=== PATIENT | male | born 1945 | race Hispanic/Latino ===

== ENCOUNTER 2017-07-27 19:51 | Inpatient (IN) | payer MEDICARE ==
--- NOTE | 2017-07-27 20:46 | ED PDOC ---
HPI: Fever Fever Onset Was: 07/27/17 The Fever Was Measured: Axillary Symptoms Associated With Fever: None Additional Comments: History taken from daughter. Pt is 72y/o male with hx of COPD, recently underwent a TAVR 2 weeks ago presenting with fever of 103F today. Pt's daughter reports that he has had a mild non productive cough for 2 days and appears dyspnic today and has had poor po intake since his procedure. Additionally, she states that he is more lethargic and his eyes dont seem to focusing as well. Pt reports that he is feeling weak and lethargic. Denies chest pain, palpatations, dyspnea, abdominal pain, n/v/d, dysuria, calf pain, or motor or sensory deficits. Daughter later reports that patient has not been taking medication for his COPD in the last month. <Jack Ring - Last Filed: 07/27/17 22:30> Past Medical History Reviewed: Historical Data, Nursing Documentation, Vital Signs - Medical History PMH: COPD - Surgical History Other surgeries: TAVR 2 weeks ago - Family History Family History: States: No Known Family Hx - Living Arrangements Living Arrangements: With Family <Jack Ring - Last Filed: 07/27/17 22:30> <Karla Birch - Last Filed: 07/27/17 22:59> Vital Signs: Last Vital Signs Temp 98.8 F 07/27/17 22:05 Pulse 123 H 07/27/17 22:05 Resp 18 07/27/17 22:05 BP 99/61 L 07/27/17 22:05 Pulse Ox 100 07/27/17 22:32 - Home Medications Home Medications: Ambulatory Orders Medication Instructions Recorded Albuterol 0.083% [Albuterol 0.083% 3 ml INH Q4 PRN 07/27/17 Inhal Sommer (2.5 mg/3 ml) UD] Albuterol HFA [Ventolin HFA 90 1 puff INH Q4 PRN 07/27/17 mcg/actuation (8 g)] Aspirin [Ecotrin] 81 mg PO DAILY 07/27/17 Clopidogrel [Plavix] 75 mg PO DAILY 07/27/17 Fluticasone/Salmeterol [Advair 1 puff INH Q12 07/27/17 250-50 Diskus] - Allergies Allergies/Adverse Reactions: Allergies Allergy/AdvReac Type Severity Reaction Status Date / Time No Known Allergies Allergy Verified 07/27/17 19:56 Physical Exam - Reviewed Nursing Documentation Reviewed: Yes Vital Signs Reviewed: Yes - Physical Exam Appears: Positive for: Well, Non-toxic, No Acute Distress Skin: Positive for: Normal Color, Warm, Jaundice (slight jaundice) Eye Exam: Positive for: Scleral icterus ENT: Positive for: Normal ENT Inspection Neck: Positive for: Normal, Supple Cardiovascular/Chest: Positive for: Regular Rate, Rhythm, Other. Negative for: Chest Non Tender, JVD, Murmur, Tachycardia Respiratory: Positive for: Normal Breath Sounds, Decreased Breath Sounds, Other (Mild dyspnea, mouth breathing, no retractions, able to speak in complete sentences ). Negative for: Accessory Muscle Use, Crackles, Rales, Stridor, Wheezing Pulses-Dorsalis Pedis (L): 2+ Pulses-Femoral (L): 2+ Pulses-Radial (L): 2+ Pulses-Radial (R): 2+ Gastrointestinal/Abdominal: Positive for: Normal Exam, Soft. Negative for: Tenderness Back: Negative for: L CVA Tenderness, R CVA Tenderness Extremity: Positive for: Capillary Refill (normal). Negative for: Calf Tenderness Neurologic/Psych: Positive for: Alert, Oriented <Jack Ring - Last Filed: 07/27/17 22:30> - Laboratory Results Result Diagrams: 07/27/17 21:02 07/27/17 21:02 - ECG O2 Sat by Pulse Oximetry: 100 <Jack Ring - Last Filed: 07/27/17 22:30> - Laboratory Results Result Diagrams: 07/27/17 21:02 07/27/17 21:02 - Critical Care Total Time (In Min): 30 <Karla Birch Y - Last Filed: 07/27/17 22:59> Medical Decision Making <Jack Ring - Last Filed: 07/27/17 22:30> <Karla Birch Y - Last Filed: 07/27/17 22:59> Medical Decision Makin72 y/o male with hx of COPD s/p TAVR 2 weeks ago presenting with fever and cough. ED Course: CBC CMP EKG Cardiac Enzymes Lactic Acid serum ABG ProBNP Influenza BCx, [facility] I spoke with pt's ed teacher Dr. Griffin and made him aware of pt's status. Plan: Admit to ICU for Sepsis likely secondary to pnuemonia. Discussed case with ER Attending, Dr. Birch (Jack Ring) Patient evaluated by resident and myself. Patient presents to the ER for fever and shortness of breath, onset tonight. Reports Tmax of 103 at home, here he is afebrile. Blood pressure is borderline. Of note, patient had TAVR procedure done at [facility] recently. Pt has hx of COPD as well. CXR shows possible pneumonia. Flu negative. Troponin positive. Lactic acid is 3.7 Will treat for clinical pneumonia and sepsis. Patient will be admitted to ICU. Hospitalist made aware of patient. (Karla Birch) Disposition - Patient ED Disposition Is Patient to be Admitted: Yes - Disposition Disposition Time: 22:31 <Jack Ring - Last Filed: 07/27/17 22:30> - Patient ED Disposition Is Patient to be Admitted: Yes Counseled Patient/Family Regarding: Studies Performed - Disposition Disposition: Transfer of Care (admitted to ICU) - Pt Status Changed To: Hospital Disposition Of: Inpatient - Admit Certification Admit to Inpatient:: After my assessment, the patient will require hospitalization for at least two midnights. This is because of the severity of symptoms shown, intensity of services needed, and/or the medical risk in this patient being treated as an outpatient. <Karla Birch - Last Filed: 07/27/17 22:59> - Clinical Impression Clinical Impression: Sepsis - Disposition Condition: SERIOUS - PA / FLATWORK FINISHER / Resident Statement MD/DO has reviewed & agrees with the documentation as recorded. <Karla Birch - Last Filed: 07/27/17 22:59>
[2017-07-27 20:52] LABS: ABG ALLEN TEST YES; ARTERIAL BLOOD GAS HCO3 25.5 mmol/L (21-28); ARTERIAL BLOOD GAS HEMOGLOBIN 14.3 g/dL (11.7-17.4); ARTERIAL BLOOD GAS O2 CAPACITY 18.8 mL/dL (16-24); ARTERIAL BLOOD GAS O2 CONTENT 17.8 ML/dL (15-23); ARTERIAL BLOOD GAS O2 SAT 94.5 % (95-98); ARTERIAL BLOOD GAS PCO2 21 mm/Hg (35-45); ARTERIAL BLOOD GAS PO2 52 mm/Hg (80-100); ARTERIAL BLOOD GAS TCO2 21.2 mmol/L (22-28)
[2017-07-27] MEDS: Sodium Chloride 0.9% 1,000 ML IV SCH (21:05)
[2017-07-27] MEDS ORDERED: Albuterol-Ipratrop 3 mg / 0.5 (3 ml) UD INH STA (21:13)
[2017-07-27 21:19] LABS: BASO % 0.1 % (0.0-2.0); EOS % 0.1 % (0.0-4.0); HEMOGLOBIN 14.2 g/dL (12.0-18.0); LYMPH # 0.1 K/uL (1.0-4.3); LYMPH % 1.4 % (20.0-40.0); MEAN CELL VOLUME 92.2 fl (80.0-94.0); MEAN CORPUSCULAR HEMOGLOBIN 30.2 pg (27.0-31.0); MEAN CORPUSCULAR HGB CONC 32.7 g/dL (33.0-37.0); MEAN PLATELET VOLUME 8.7 fl (7.2-11.7); MONO # 0.3 K/uL (0.0-0.8); MONO % 2.7 % (0.0-10.0); NEUT # 9.6 K/uL (1.8-7.0); NEUT % 95.7 % (50.0-75.0); NRBC % 0.1 % (0.0-0.0); PLATELET COUNT 67 K/uL (130-400); RBC 4.72 Mil/uL (4.40-5.90); RED CELL DISTRIBUTION WIDTH 19.8 % (11.5-14.5)
[2017-07-27 21:28] LABS: ALBUMIN 2.7 g/dL (3.5-5.0); ALT/SGPT 125 U/L (21-72); AST/SGOT 222 U/L (17-59); BLOOD UREA NITROGEN 24 mg/dl (9-20); CALCIUM 8.1 mg/dL (8.4-10.2); GFR AFRICAN-AMERICAN > 60; GFR NON-AFRICAN AMERICAN > 60
[2017-07-27] MEDS ORDERED: Albuterol-Ipratrop 3 mg / 0.5 (3 ml) UD ONE (21:28)
[2017-07-27 21:30] LABS: ALB/GLOB RATIO 0.7 (1.0-2.1)
[2017-07-27] MEDS ORDERED: Piperacillin/Tazobact 4.5 GM in Sodium Chloride 0.9% 100 ML IVPB ONE (21:30)
[2017-07-27] MEDS ORDERED: Albuterol-Ipratrop 3 mg / 0.5 (3 ml) UD INH PRN (21:59)
[2017-07-27] MEDS ORDERED: Piperacillin/Tazobact 3.375 GM in Sodium Chloride 0.9% 100 ML IVPB SCH (22:00)
[2017-07-27] MEDS ORDERED: Vancomycin 1 g Inj ONE (22:01)
--- NOTE | 2017-07-27 22:07 | CP.PCM.HP ---
History of Present Illness - History of Present Illness History of Present Illness: CC: Fever, cough HPI: 72 y/o male with MHx significant for COPD, valvular heart disease with recent TAVR (07/17), and undiagnosed liver disease who comes in with SOB, cough , and fever starting yesterday. Patient also had a fever of 103+. Cough is not productive of significant sputum. Patient also c/o generalized malaise and anorexia. Patient denies myalgias, cp/n/v/d. Of note patient was in the hospital at another facility about mid-June with similar symptoms. Patient had TAVR procedure at [facility] in [place] on 07/17 without complications. Patient did have flu shot this year. ROS: 14 pt. ROS negative other than HPI MHx: COPD, valvular heart disease, ?unclear liver disease SHx: TAVR recently, surgery of RLE with hardware distant past Allergies: NKDA Medications: As per med rec Family Hx: reviewed, no relevant findings Social Hx: Lives with family, smoked 1/2 ppd x many years until 4 months ago, no significant EtOH Surrogate: , Lina, info on chart Present on Admission - Present on Admission Any Indicators Present on Admission: No Past Patient History - Past Social History Smoking Status: Former Smoker - CARDIAC Hx Hypertension: Yes - PULMONARY Hx Chronic Obstructive Pulmonary Disease (COPD): Yes - PSYCHIATRIC Hx Substance Use: No - SURGICAL HISTORY Hx Surgeries: Yes Hx Orthopedic Surgery: Yes (Right ankle) Other/Comment: TAVR 07/13 - ANESTHESIA Hx Anesthesia: Yes Hx Anesthesia Reactions: No Meds Allergies/Adverse Reactions: Allergies Allergy/AdvReac Type Severity Reaction Status Date / Time No Known Allergies Allergy Verified 07/27/17 19:56 Physical Exam - Constitutional Appears: No Acute Distress, Chronically Ill - Head Exam Head Exam: ATRAUMATIC, NORMOCEPHALIC - Eye Exam Eye Exam: EOMI, PERRL Additional comments: scleral icterus - ENT Exam ENT Exam: Mucous Membranes Moist - Neck Exam Neck exam: Positive for: Full Rom - Respiratory Exam Respiratory Exam: Decreased Breath Sounds, Rhonchi - Cardiovascular Exam Cardiovascular Exam: REGULAR RHYTHM, +S1, +S2 - GI/Abdominal Exam GI & Abdominal Exam: Normal Bowel Sounds, Soft - Extremities Exam Extremities exam: Positive for: full ROM, normal inspection - Neurological Exam Neurological exam: Alert, CN II-XII Intact, Oriented x3 - Psychiatric Exam Psychiatric exam: Normal Affect, Normal Mood - Skin Skin Exam: Dry, Warm Results - Vital Signs Recent Vital Signs: Last Vital Signs Temp 98.9 F 07/27/17 19:52 Pulse 117 H 07/27/17 19:52 Resp 16 07/27/17 19:52 BP 96/75 L 07/27/17 19:52 Pulse Ox 100 07/27/17 21:29 - Labs Result Diagrams: 07/27/17 21:02 07/27/17 21:02 Labs: Laboratory Results - last 24 hr 07/27/17 07/27/17 07/27/17 20:38 20:47 21:02 WBC 10.0 RBC 4.72 Hgb 14.2 Hct 43.5 MCV 92.2 MCH 30.2 MCHC 32.7 L RDW 19.8 H Plt Count 67 L MPV 8.7 Neut % (Auto) 95.7 H Lymph % (Auto) 1.4 L Howard % (Auto) 2.7 Eos % (Auto) 0.1 Baso % (Auto) 0.1 Neut # 9.6 H Lymph # 0.1 L Howard # 0.3 Eos # 0.0 Baso # 0.0 pCO2 21 L pO2 52 L HCO3 25.5 ABG pH 7.60 H ABG Total CO2 21.2 L ABG O2 Saturation 94.5 L ABG O2 Content 17.8 ABG Base Excess 1.1 ABG Hemoglobin 14.3 ABG Carboxyhemoglobin 3.9 H POC ABG HHb (Measured) 5.2 H ABG Methemoglobin 2.3 ABG O2 Capacity 18.8 Rodney Test Yes A-a O2 Difference 71.0 Hgb O2 Saturation 88.6 L FiO2 21.0 Sodium Potassium Chloride Carbon Dioxide Anion Gap BUN Creatinine Est GFR ( Amer) Est GFR (Non-Af Amer) POC Glucose (mg/dL) 106 Random Glucose Lactic Acid Calcium Total Bilirubin AST ALT Alkaline Phosphatase Total Protein Albumin Globulin Albumin/Globulin Ratio Influenza Typ A,B (EIA) 07/27/17 07/27/17 07/27/17 21:02 21:02 21:12 WBC RBC Hgb Hct MCV MCH MCHC RDW Plt Count MPV Neut % (Auto) Lymph % (Auto) Howard % (Auto) Eos % (Auto) Baso % (Auto) Neut # Lymph # Howard # Eos # Baso # pCO2 pO2 HCO3 ABG pH ABG Total CO2 ABG O2 Saturation ABG O2 Content ABG Base Excess ABG Hemoglobin ABG Carboxyhemoglobin POC ABG HHb (Measured) ABG Methemoglobin ABG O2 Capacity Rodney Test A-a O2 Difference Hgb O2 Saturation FiO2 Sodium 128 L Potassium 4.5 Chloride 97 L Carbon Dioxide 22 Anion Gap 14 BUN 24 H Creatinine 0.9 Est GFR ( Amer) > 60 Est GFR (Non-Af Amer) > 60 POC Glucose (mg/dL) Random Glucose 115 H Lactic Acid 3.7 H Calcium 8.1 L Total Bilirubin 4.1 H AST 222 H ALT 125 H Alkaline Phosphatase 69 Total Protein 6.5 Albumin 2.7 L Globulin 3.8 Albumin/Globulin Ratio 0.7 L Influenza Typ A,B (EIA) Negative for flu a/b - EKG Data EKG comments: Pending - Imaging and Cardiology Chest x-ray Status: Image reviewed by me (possible R sided infiltrate, enlarged appearing heart) US - abdomen Status: Pending Assessment & Plan (1) HCAP (healthcare-associated pneumonia) Assessment and Plan: 72 y/o male presenting with possible HCAP with COPD exac and sepsis, also with hypo-Na, and elevated LFTs/jaundice. 1) HCAP/COPD/Sepsis -Admit ICU -Continue Vanc/Zosyn IV -Continue duonebs -Cont Steroid inh for now -f/u labs -repeat Lactic acid in AM 2) Hypo-Na -- multiple possible etiologies: vol overload from cardiac and/or liver disease, pulmonary cause, or intravascular vol dep -Urine lytes, osms, and serum osms ordered -Received IVF in ER, reassess vol status before giving any more fluid 3) Elevated LFTs/Jaundice/Thrombocytopenia -- unknown cause; per family, distant history of 'infection' -f/u U/S abd -Will start on PPI given patient is on dual anti-platelent agents and with low plt -Will need further liver workup if not done, but this can be done with patient' s primary physician 4) DVT PPx -- SCDs only given low plt count and on 2 anti-plt agents 5) GI PPx -- Protonix as above Status: Acute (2) COPD exacerbation Status: Acute (3) Abnormal LFTs Status: Acute (4) Thrombocytopenia Status: Acute (5) Jaundice Status: Acute (6) Hyponatremia Status: Acute (7) DVT prophylaxis Status: Acute (8) Sepsis Status: Acute
[2017-07-27 22:32] LABS: TROPONIN I 0.553 ng/mL (0.00-0.120)
[2017-07-27 22:36] LABS: ANISOCYTOSIS SLIGHT; BURR CELLS SLIGHT; HYPOCHROMIC SLIGHT; LYMPHOCYTE 1 % (20-50); MONOCYTE 2 % (0-10); NEUTROPHIL 97 % (42-75); PLATELET ESTIMATE NORMAL (NORMAL); TEARDROP CELLS SLIGHT; TOTAL CELLS COUNTED 100
[2017-07-28 05:42] LABS: BASO % 0.2 % (0.0-2.0); EOS % 0.1 % (0.0-4.0); HEMOGLOBIN 14.3 g/dL (12.0-18.0); LYMPH # 0.4 K/uL (1.0-4.3); LYMPH % 2.8 % (20.0-40.0); MEAN CELL VOLUME 92.9 fl (80.0-94.0); MEAN CORPUSCULAR HEMOGLOBIN 30.1 pg (27.0-31.0); MEAN CORPUSCULAR HGB CONC 32.4 g/dL (33.0-37.0); MEAN PLATELET VOLUME 9.4 fl (7.2-11.7); MONO % 6.1 % (0.0-10.0); NEUT # 14.3 K/uL (1.8-7.0); NEUT % 90.8 % (50.0-75.0); PLATELET COUNT 39 K/uL (130-400); RBC 4.74 Mil/uL (4.40-5.90); RED CELL DISTRIBUTION WIDTH 20.4 % (11.5-14.5); WHITE BLOOD COUNT 15.8 K/uL (4.8-10.8)
[2017-07-28 05:56] LABS: BLOOD UREA NITROGEN 28 mg/dl (9-20); GFR AFRICAN-AMERICAN > 60; GFR NON-AFRICAN AMERICAN > 60
[2017-07-28] MEDS: Sodium Chloride 0.9% 1,000 ML IV SCH (06:30)
[2017-07-28] MEDS ORDERED: Digoxin 500 mcg/2ml (0.5 mg/2ml) Inj IVP ONE (07:50)
[2017-07-28 08:27] VITALS: PULSE 121
[2017-07-28] MEDS: Piperacillin/Tazobact 3.375 GM in Sodium Chloride 0.9% 100 ML IVPB SCH ×2 (08:34→13:49)
[2017-07-28 08:51] LABS: INR 2.3 (0.9-1.2); PARTIAL THROMBOPLASTIN TIME 43.2 Seconds (25.6-37.1); PROTHROMBIN TIME 26.1 Seconds (9.8-13.1)
[2017-07-28] MEDS ORDERED: Fluticasone-Salmeterol 250-50mcg Diskus INH SCH (09:00)
[2017-07-28] MEDS ORDERED: Enoxaparin 40 mg Syringe SC SCH (09:00)
[2017-07-28] MEDS ORDERED: Pantoprazole 40 mg EC Tab PO SCH (09:00)
[2017-07-28 09:15] LABS: OSMOLALITY,URINE 536 mosm/kg (300-1000)
[2017-07-28 09:23] LABS: BANDS 5 % (0-2); LYMPHOCYTE 2 % (20-50); METAMYELOCYTE 1 % (0-0); MONOCYTE 3 % (0-10); NEUTROPHIL 88 % (42-75); PLATELET ESTIMATE DECREASED (NORMAL); REACTIVE LYMPHOCYTES 1 % (0-0); TOTAL CELLS COUNTED 100
[2017-07-28 09:24] LABS: ANISOCYTOSIS MARKED; OVALOCYTES MODERATE; POIKILOCYTOSIS MODERATE; SCHISTOCYTES SLIGHT
[2017-07-28 09:25] LABS: BURR CELLS SLIGHT; GIANT PLATELETS PRESENT; LARGE PLATELETS PRESENT; TEARDROP CELLS SLIGHT; TOXIC GRANULATION PRESENT
--- NOTE | 2017-07-28 10:11 | CARD ---
APPROVED REPORT EKG Measurement Heart [id number] <Conclusion> Sinus tachycardia with 1st degree AV block with premature supraventricular complexes Septal infarct, age undetermined Abnormal ECG
--- NOTE | 2017-07-28 10:20 | RAD ---
HISTORY: cough COMPARISON: None available. TECHNIQUE: Chest, one view. FINDINGS: Examination limited by habitus. LUNGS: Moderate interstitial markings may reflect infection or edema. Please note that chest x-ray has limited sensitivity for the detection of pulmonary masses. PLEURA: No significant pleural effusion identified. No definite pneumothorax . CARDIOVASCULAR: Cardiomegaly. OSSEOUS STRUCTURES: Degenerative changes. Osseous demineralization. VISUALIZED UPPER ABDOMEN: Unremarkable. OTHER FINDINGS: None. IMPRESSION: Moderate interstitial markings may reflect infection or edema. Cardiomegaly.
--- NOTE | 2017-07-28 10:31 | CARD ---
APPROVED REPORT EKG Measurement Heart [id number] <Conclusion> Atrial fibrillation with rapid ventricular response Septal infarct, age undetermined Abnormal ECG
--- NOTE | 2017-07-28 10:59 | CP.PCM.PN ---
Subjective - Date & Time of Evaluation Date of Evaluation: 07/28/17 Time of Evaluation: 10:00 - Subjective Subjective: Pt seen and examined at bedside, discussed test results , differential Dx , treatment plan , also spoke with pt's daughter over the phone and discussed that pt's condition is critical Family want pt to be transferred to [facility] where his recent TAVR was done Pt looks sick, toxic, febrile , tachycardic, BP low normal high 90's , low 100s he is awake , verbal, answers questions appropiately denies CP + cough, mild SOB denies abd pain no N/V denies headache, no dizziness no focal neuro deficit denies intake of any med except ASA and Plavix at home no ETOH, no drugs former heavy smoker Objective - Vital Signs/Intake and Output Vital Signs (last 24 hours): Temp Pulse Resp BP Pulse Ox 97.7 F 107 H 23 108/90 98 07/28/17 08:00 07/28/17 10:00 07/28/17 10:00 07/28/17 10:00 07/28/17 10:00 Intake and Output: 07/28/17 07/28/17 06:59 18:59 Intake Total 800 Output Total 600 250 Balance 200 -250 - Medications Medications: Current Medications Albuterol/Ipratropium (Duoneb 3 Mg/0.5 Mg (3 Ml) Ud) 3 ml INH RQ6 PRN PRN Reason: Shortness of Breath Aspirin (Ecotrin) 81 mg PO DAILY [facility] Last Admin: 07/28/17 08:29 Dose: 81 mg Clopidogrel Bisulfate (Plavix) 75 mg PO DAILY [facility] Last Admin: 07/28/17 08:29 Dose: 75 mg Sodium Chloride (Sodium Chloride 0.9%) 1,000 mls @ 100 mls/hr IV .Q10H [facility] Stop: 07/28/17 20:23 Last Admin: 07/28/17 06:30 Dose: 100 mls/hr Vancomycin HCl 1 gm/ Sodium (Chloride) 250 mls @ 166.667 mls/hr IVPB Q12 NATALIE PRN Reason: Protocol Piperacillin Sod/Tazobactam (Sod 3.375 gm/ Sodium Chloride) 100 mls @ 100 mls/ hr IVPB 0200,0800,1400,2000 NATALIE PRN Reason: Protocol Last Admin: 07/28/17 08:34 Dose: 100 mls/hr Pantoprazole Sodium (Protonix Ec Tab) 40 mg PO DAILY [facility] Last Admin: 07/28/17 08:29 Dose: 40 mg Fluticasone/Salmeterol (Advair Diskus 250/50) 1 puff INH Q12 [facility] Last Admin: 07/28/17 08:30 Dose: 1 inhaler - Labs Labs: 07/28/17 04:30 07/28/17 04:30 PT 26.1 Seconds (9.8-13.1) H 07/28/17 08:14 INR 2.3 (0.9-1.2) H 07/28/17 08:14 APTT 43.2 Seconds (25.6-37.1) H 07/28/17 08:14 - Constitutional Appears: Toxic, No Acute Distress, Older Than Stated Age, Chronically Ill - Head Exam Head Exam: NORMAL INSPECTION, NORMOCEPHALIC - Eye Exam Eye Exam: EOMI, Normal appearance, PERRL Pupil Exam: NORMAL ACCOMODATION - ENT Exam ENT Exam: Mucous Membranes Dry, Normal External Ear Exam - Neck Exam Neck Exam: Full ROM. absent: Meningismus - Respiratory Exam Respiratory Exam: Rales, Rhonchi, NORMAL BREATHING PATTERN. absent: Wheezes, Respiratory Distress - Cardiovascular Exam Cardiovascular Exam: Tachycardia, REGULAR RHYTHM, +S1, +S2 - GI/Abdominal Exam GI & Abdominal Exam: Soft, Normal Bowel Sounds. absent: Tenderness - Extremities Exam Extremities Exam: Full ROM, Normal Capillary Refill. absent: Calf Tenderness, Pedal Edema - Back Exam Back Exam: Full ROM. absent: CVA tenderness (L), CVA tenderness (R) - Neurological Exam Neurological Exam: Alert, Awake, CN II-XII Intact, Oriented x3 Neuro motor strength exam: Left Upper Extremity: 4, Right Upper Extremity: 4, Left Lower Extremity: 4, Right Lower Extremity: 4 - Psychiatric Exam Psychiatric exam: Flat Affect, Normal Mood - Skin Skin Exam: Dry, Normal Color, Petechiae, Warm Assessment and Plan - Assessment and Plan (Free Text) Assessment: 72 y/o male with hx of recent TAVR ( 10 days ago) and hx of COPD, presented to the ED bec of fever to 103 , cough, generalized weakness. Noted to be hypotensive, septic, with abn LFTS , coagulopathy and Thrombocytopenia and elevated Lactate. Septic Shock prob sec to HCAP (healthcare-associated pneumonia) r/o Endocarditis -Admitted to ICU - Central line placed and pt started on pressors - Levophed and Dopamine - IVF hydration - ID consult - Dr Lynn -Continue Vanc/Zosyn IV -Continue duonebs -Cont Steroid inh for now - Blood cultures, Urine c/s, sputum c/s Recent TAVR done at [facility] Jul 17 Troponin Elevation prob sec to Sepsis Cardio co nsulted cont ASA, Plavix Hyponatremia-- multiple possible etiologies: vol overload from cardiac and/or liver disease, pulmonary cause, or intravascular vol dep -Urine lytes, osms, and serum osms ordered -Received IVF in ER, reassess vol status Elevated LFTs/Jaundice/Thrombocytopenia / Coagulopathy ? etiology ? related to Sepsis - check ddimer, Fibrinogen, HIT -U/S abd: gallstone, no signs of cholecystitis, hepatic cyst -PPI given patient is on dual anti-platelent agents and with low plt - platelet down to 37, INR 2.3 - GI consult -Hematology consult COPD exacerbation Status: Acute received IV Solumedrol, Duoneb treatments DVT proph - hold any anticoag sec to low platelet and coagulopathy Patient and his who is his surrogate decision maker want pt to be transferred back to [facility] - Dr Cook spoke with pt's Respiratory Care Assistant who accepted pt for transfer - awaiting ICU bed.
--- NOTE | 2017-07-28 11:22 | CP.CCUPN ---
CCU Subjective - Physician Review Subjective (Free Text): Patient seen and examined at bedside. Patient with long history of CAD and valvular heart disease. Patient had recent TAVR at [facility]. Patient admitted to ICU. not on pressors, getting IVF. 07/28/17 11:20 CCU Objective - Vital Signs / Intake & Output Vital Signs (Last 4 hours): Vital Signs Temp Pulse Resp BP Pulse Ox 07/28/17 10:00 107 H 23 108/90 98 07/28/17 08:00 97.7 F 132 H 18 92/52 L 95 Intake and Output (Last 8hrs): Intake & Output 07/27/17 07/28/17 07/28/17 22:59 06:59 14:59 Intake Total 800 Output Total 600 250 Balance 200 -250 Weight 150 lb 150 lb Intake: IV 600 Intake, Piggyback 100 Oral 100 Output: Urine 600 250 Urine, Voided 600 250 Other: # Voids Urine, Voided 3 # Bowel Movements 1 - Physical Exam Physical Exam Limitations: Negative for: Altered Mental Status Head: Positive for: Atraumatic, Normocephalic Pupils: Positive for: PERRL Mouth: Positive for: Other (dry blood on anterior tongue) Nose (Internal): Positive for: No Active Bleeding Respiratory/Chest: Positive for: Good Air Exchange, Rales. Negative for: Respiratory Distress, Wheezes Cardiovascular: Positive for: Irregular Rhythm, Tachycardic Abdomen: Positive for: Normal Bowel Sounds. Negative for: Peritoneal Signs Upper Extremity: Positive for: Other (left upper arm erythema) Lower Extremity: Positive for: Normal Inspection - Medications Active Medications: Active Medications Generic Name Dose Route Start Last Admin Trade Name Freq PRN Reason Stop Dose Admin Albuterol/Ipratropium 3 ml 07/27/17 21:59 Duoneb 3 Mg/0.5 Mg (3 Ml) Ud INH RQ6 PRN Shortness of Breath Aspirin 81 mg 07/28/17 09:00 07/28/17 08:29 Ecotrin PO 81 mg DAILY NATALIE Administration Clopidogrel Bisulfate 75 mg 07/28/17 09:00 07/28/17 08:29 Plavix PO 75 mg DAILY NATALIE Administration Sodium Chloride 1,000 mls @ 100 mls/hr 07/27/17 20:30 07/28/17 06:30 Sodium Chloride 0.9% IV 07/28/17 20:23 100 mls/hr .Q10H NATALIE Administration Vancomycin HCl 1 gm/ Sodium 250 mls @ 166.667 mls/hr 07/28/17 09:00 Chloride IVPB Q12 NATALIE Protocol Piperacillin Sod/Tazobactam 100 mls @ 100 mls/hr 07/28/17 08:00 07/28/17 08: 34 Sod 3.375 gm/ Sodium Chloride IVPB 100 mls/hr 0200,0800,1400,2000 NATALIE Administration Protocol Pantoprazole Sodium 40 mg 07/28/17 09:00 07/28/17 08:29 Protonix Ec Tab PO 40 mg DAILY NATALIE Administration Fluticasone/Salmeterol 1 puff 07/28/17 09:00 07/28/17 08:30 Advair Diskus 250/50 INH 1 inhaler Q12 NATALIE Administration - Patient Studies Lab Studies: Lab Studies 07/28/17 07/28/17 07/28/17 Range/Units 08:14 08:14 05:00 WBC (4.8-10.8) K/uL RBC (4.40-5.90) Mil/uL Hgb (12.0-18.0) g/dL Hct (35.0-51.0) % MCV (80.0-94.0) fl MCH (27.0-31.0) pg MCHC (33.0-37.0) g/dL RDW (11.5-14.5) % Plt Count (130-400) K/uL MPV (7.2-11.7) fl Neut % (Auto) (50.0-75.0) % Lymph % (Auto) (20.0-40.0) % [place] % (Auto) (0.0-10.0) % Eos % (Auto) (0.0-4.0) % Baso % (Auto) (0.0-2.0) % Neut # (1.8-7.0) K/uL Lymph # (1.0-4.3) K/uL [place] # (0.0-0.8) K/uL Eos # (0.0-0.7) K/uL Baso # (0.0-0.2) K/uL Neutrophils % (Manual) (42-75) % Band Neutrophils % (0-2) % Lymphocytes % (Manual) (20-50) % Reactive Lymphs % (0-0) % Monocytes % (Manual) (0-10) % Metamyelocytes % (0-0) % Toxic Granulation Platelet Estimate (NORMAL) Large Platelets Giant Platelets Hypochromasia (manual) Poikilocytosis (manual Anisocytosis (manual) Tear Drop Cells Ovalocytes Keaton Cells Schistocytes PT 26.1 H (9.8-13.1) Seconds INR 2.3 H (0.9-1.2) APTT 43.2 H (25.6-37.1) Seconds pCO2 (35-45) mm/Hg pO2 (80-100) mm/Hg HCO3 (21-28) mmol/L ABG pH (7.35-7.45) ABG Total CO2 (22-28) mmol/L ABG O2 Saturation (95-98) % ABG O2 Content (15-23) ML/dL ABG Base Excess (-2.0-3.0) mmol/L ABG Hemoglobin (11.7-17.4) g/dL ABG Carboxyhemoglobin (0.5-1.5) % POC ABG HHb (Measured) (0.0-5.0) % ABG Methemoglobin (0.0-3.0) % ABG O2 Capacity (16-24) mL/dL Rodney Test A-a O2 Difference mm/Hg Hgb O2 Saturation (95.0-98.0) % FiO2 % Sodium (132-148) mmol/l Potassium (3.6-5.0) MMOL/L Chloride (98-107) mmol/L Carbon Dioxide (22-30) mmol/L Anion Gap (10-20) BUN (9-20) mg/dl Creatinine (0.8-1.5) mg/dl Est GFR ( Amer) Est GFR (Non-Af Amer) POC Glucose (mg/dL) (65-110) mg/dL Random Glucose (75-110) mg/dL Lactic Acid 3.4 H 4.6 H* (0.7-2.1) MMOL/L Calcium (8.4-10.2) mg/dL Total Bilirubin (0.2-1.3) mg/dl AST (17-59) U/L ALT (21-72) U/L Alkaline Phosphatase (38-126) U/L Troponin I (0.00-0.120) ng/mL NT-Pro-B Natriuret Pep (0-900) pg/ml Total Protein (6.3-8.2) G/DL Albumin (3.5-5.0) g/dL Globulin (2.2-3.9) gm/dL Albumin/Globulin Ratio (1.0-2.1) Urine Osmolality (300-1000) mosm/kg Ur Random Sodium meq/L Ur Random Potassium mmol/L Influenza Typ A,B (EIA) (NEGATIVE) 07/28/17 07/28/17 07/27/17 Range/Units 04:30 04:30 21:55 WBC 15.8 H D (4.8-10.8) K/uL RBC 4.74 (4.40-5.90) Mil/uL Hgb 14.3 (12.0-18.0) g/dL Hct 44.0 (35.0-51.0) % MCV 92.9 (80.0-94.0) fl MCH 30.1 (27.0-31.0) pg MCHC 32.4 L (33.0-37.0) g/dL RDW 20.4 H (11.5-14.5) % Plt Count 39 L D (130-400) K/uL MPV 9.4 (7.2-11.7) fl Neut % (Auto) 90.8 H (50.0-75.0) % Lymph % (Auto) 2.8 L (20.0-40.0) % [place] % (Auto) 6.1 (0.0-10.0) % Eos % (Auto) 0.1 (0.0-4.0) % Baso % (Auto) 0.2 (0.0-2.0) % Neut # 14.3 H (1.8-7.0) K/uL Lymph # 0.4 L (1.0-4.3) K/uL [place] # 1.0 H (0.0-0.8) K/uL Eos # 0.0 (0.0-0.7) K/uL Baso # 0.0 (0.0-0.2) K/uL Neutrophils % (Manual) 88 H (42-75) % Band Neutrophils % 5 H (0-2) % Lymphocytes % (Manual) 2 L (20-50) % Reactive Lymphs % 1 H (0-0) % Monocytes % (Manual) 3 (0-10) % Metamyelocytes % 1 H (0-0) % Toxic Granulation Present Platelet Estimate Decreased L (NORMAL) Large Platelets Present Giant Platelets Present Hypochromasia (manual) Poikilocytosis (manual Moderate Anisocytosis (manual) Marked Tear Drop Cells Slight Ovalocytes Moderate Shanta Cells Slight Schistocytes Slight PT (9.8-13.1) Seconds INR (0.9-1.2) APTT (25.6-37.1) Seconds pCO2 (35-45) mm/Hg pO2 (80-100) mm/Hg HCO3 (21-28) mmol/L ABG pH (7.35-7.45) ABG Total CO2 (22-28) mmol/L ABG O2 Saturation (95-98) % ABG O2 Content (15-23) ML/dL ABG Base Excess (-2.0-3.0) mmol/L ABG Hemoglobin (11.7-17.4) g/dL ABG Carboxyhemoglobin (0.5-1.5) % POC ABG HHb (Measured) (0.0-5.0) % ABG Methemoglobin (0.0-3.0) % ABG O2 Capacity (16-24) mL/dL Rodney Test A-a O2 Difference mm/Hg Hgb O2 Saturation (95.0-98.0) % FiO2 % Sodium 132 (132-148) mmol/l Potassium 4.1 (3.6-5.0) MMOL/L Chloride 98 (98-107) mmol/L Carbon Dioxide 21 L (22-30) mmol/L Anion Gap 17 (10-20) BUN 28 H (9-20) mg/dl Creatinine 0.8 (0.8-1.5) mg/dl Est GFR ( Amer) > 60 Est GFR (Non-Af Amer) > 60 POC Glucose (mg/dL) (65-110) mg/dL Random Glucose 125 H (75-110) mg/dL Lactic Acid (0.7-2.1) MMOL/L Calcium 8.0 L (8.4-10.2) mg/dL Total Bilirubin (0.2-1.3) mg/dl AST (17-59) U/L ALT (21-72) U/L Alkaline Phosphatase (38-126) U/L Troponin I 0.5530 H* (0.00-0.120) ng/mL NT-Pro-B Natriuret Pep 77285 H (0-900) pg/ml Total Protein (6.3-8.2) G/DL Albumin (3.5-5.0) g/dL Globulin (2.2-3.9) gm/dL Albumin/Globulin Ratio (1.0-2.1) Urine Osmolality (300-1000) mosm/kg Ur Random Sodium meq/L Ur Random Potassium mmol/L Influenza Typ A,B (EIA) (NEGATIVE) 07/27/17 07/27/17 07/27/17 Range/Units 21:12 21:02 21:02 WBC (4.8-10.8) K/uL RBC (4.40-5.90) Mil/uL Hgb (12.0-18.0) g/dL Hct (35.0-51.0) % MCV (80.0-94.0) fl MCH (27.0-31.0) pg MCHC (33.0-37.0) g/dL RDW (11.5-14.5) % Plt Count (130-400) K/uL MPV (7.2-11.7) fl Neut % (Auto) (50.0-75.0) % Lymph % (Auto) (20.0-40.0) % [place] % (Auto) (0.0-10.0) % Eos % (Auto) (0.0-4.0) % Baso % (Auto) (0.0-2.0) % Neut # (1.8-7.0) K/uL Lymph # (1.0-4.3) K/uL [place] # (0.0-0.8) K/uL Eos # (0.0-0.7) K/uL Baso # (0.0-0.2) K/uL Neutrophils % (Manual) (42-75) % Band Neutrophils % (0-2) % Lymphocytes % (Manual) (20-50) % Reactive Lymphs % (0-0) % Monocytes % (Manual) (0-10) % Metamyelocytes % (0-0) % Toxic Granulation Platelet Estimate (NORMAL) Large Platelets Giant Platelets Hypochromasia (manual) Poikilocytosis (manual Anisocytosis (manual) Tear Drop Cells Ovalocytes Keaton Cells Schistocytes PT (9.8-13.1) Seconds INR (0.9-1.2) APTT (25.6-37.1) Seconds pCO2 (35-45) mm/Hg pO2 (80-100) mm/Hg HCO3 (21-28) mmol/L ABG pH (7.35-7.45) ABG Total CO2 (22-28) mmol/L ABG O2 Saturation (95-98) % ABG O2 Content (15-23) ML/dL ABG Base Excess (-2.0-3.0) mmol/L ABG Hemoglobin (11.7-17.4) g/dL ABG Carboxyhemoglobin (0.5-1.5) % POC ABG HHb (Measured) (0.0-5.0) % ABG Methemoglobin (0.0-3.0) % ABG O2 Capacity (16-24) mL/dL Rodney Test A-a O2 Difference mm/Hg Hgb O2 Saturation (95.0-98.0) % FiO2 % Sodium 128 L (132-148) mmol/l Potassium 4.5 (3.6-5.0) MMOL/L Chloride 97 L (98-107) mmol/L Carbon Dioxide 22 (22-30) mmol/L Anion Gap 14 (10-20) BUN 24 H (9-20) mg/dl Creatinine 0.9 (0.8-1.5) mg/dl Est GFR ( Amer) > 60 Est GFR (Non-Af Amer) > 60 POC Glucose (mg/dL) (65-110) mg/dL Random Glucose 115 H (75-110) mg/dL Lactic Acid 3.7 H (0.7-2.1) MMOL/L Calcium 8.1 L (8.4-10.2) mg/dL Total Bilirubin 4.1 H (0.2-1.3) mg/dl AST 222 H (17-59) U/L ALT 125 H (21-72) U/L Alkaline Phosphatase 69 (38-126) U/L Troponin I (0.00-0.120) ng/mL NT-Pro-B Natriuret Pep (0-900) pg/ml Total Protein 6.5 (6.3-8.2) G/DL Albumin 2.7 L (3.5-5.0) g/dL Globulin 3.8 (2.2-3.9) gm/dL Albumin/Globulin Ratio 0.7 L (1.0-2.1) Urine Osmolality (300-1000) mosm/kg Ur Random Sodium meq/L Ur Random Potassium mmol/L Influenza Typ A,B (EIA) Negative for flu a/b (NEGATIVE) 07/27/17 07/27/17 07/27/17 Range/Units 21:02 20:47 20:38 WBC 10.0 (4.8-10.8) K/uL RBC 4.72 (4.40-5.90) Mil/uL Hgb 14.2 (12.0-18.0) g/dL Hct 43.5 (35.0-51.0) % MCV 92.2 (80.0-94.0) fl MCH 30.2 (27.0-31.0) pg MCHC 32.7 L (33.0-37.0) g/dL RDW 19.8 H (11.5-14.5) % Plt Count 67 L (130-400) K/uL MPV 8.7 (7.2-11.7) fl Neut % (Auto) 95.7 H (50.0-75.0) % Lymph % (Auto) 1.4 L (20.0-40.0) % [place] % (Auto) 2.7 (0.0-10.0) % Eos % (Auto) 0.1 (0.0-4.0) % Baso % (Auto) 0.1 (0.0-2.0) % Neut # 9.6 H (1.8-7.0) K/uL Lymph # 0.1 L (1.0-4.3) K/uL [place] # 0.3 (0.0-0.8) K/uL Eos # 0.0 (0.0-0.7) K/uL Baso # 0.0 (0.0-0.2) K/uL Neutrophils % (Manual) 97 H (42-75) % Band Neutrophils % (0-2) % Lymphocytes % (Manual) 1 L (20-50) % Reactive Lymphs % (0-0) % Monocytes % (Manual) 2 (0-10) % Metamyelocytes % (0-0) % Toxic Granulation Platelet Estimate Normal (NORMAL) Large Platelets Giant Platelets Hypochromasia (manual) Slight Poikilocytosis (manual Anisocytosis (manual) Slight Tear Drop Cells Slight Ovalocytes Keaton Cells Slight Schistocytes PT (9.8-13.1) Seconds INR (0.9-1.2) APTT (25.6-37.1) Seconds pCO2 21 L (35-45) mm/Hg pO2 52 L (80-100) mm/Hg HCO3 25.5 (21-28) mmol/L ABG pH 7.60 H (7.35-7.45) ABG Total CO2 21.2 L (22-28) mmol/L ABG O2 Saturation 94.5 L (95-98) % ABG O2 Content 17.8 (15-23) ML/dL ABG Base Excess 1.1 (-2.0-3.0) mmol/L ABG Hemoglobin 14.3 (11.7-17.4) g/dL ABG Carboxyhemoglobin 3.9 H (0.5-1.5) % POC ABG HHb (Measured) 5.2 H (0.0-5.0) % ABG Methemoglobin 2.3 (0.0-3.0) % ABG O2 Capacity 18.8 (16-24) mL/dL Rodney Test Yes A-a O2 Difference 71.0 mm/Hg Hgb O2 Saturation 88.6 L (95.0-98.0) % FiO2 21.0 % Sodium (132-148) mmol/l Potassium (3.6-5.0) MMOL/L Chloride (98-107) mmol/L Carbon Dioxide (22-30) mmol/L Anion Gap (10-20) BUN (9-20) mg/dl Creatinine (0.8-1.5) mg/dl Est GFR ( Amer) Est GFR (Non-Af Amer) POC Glucose (mg/dL) 106 (65-110) mg/dL Random Glucose (75-110) mg/dL Lactic Acid (0.7-2.1) MMOL/L Calcium (8.4-10.2) mg/dL Total Bilirubin (0.2-1.3) mg/dl AST (17-59) U/L ALT (21-72) U/L Alkaline Phosphatase (38-126) U/L Troponin I (0.00-0.120) ng/mL NT-Pro-B Natriuret Pep (0-900) pg/ml Total Protein (6.3-8.2) G/DL Albumin (3.5-5.0) g/dL Globulin (2.2-3.9) gm/dL Albumin/Globulin Ratio (1.0-2.1) Urine Osmolality (300-1000) mosm/kg Ur Random Sodium meq/L Ur Random Potassium mmol/L Influenza Typ A,B (EIA) (NEGATIVE) 07/27/17 Range/Units 08:33 WBC (4.8-10.8) K/uL RBC (4.40-5.90) Mil/uL Hgb (12.0-18.0) g/dL Hct (35.0-51.0) % MCV (80.0-94.0) fl MCH (27.0-31.0) pg MCHC (33.0-37.0) g/dL RDW (11.5-14.5) % Plt Count (130-400) K/uL MPV (7.2-11.7) fl Neut % (Auto) (50.0-75.0) % Lymph % (Auto) (20.0-40.0) % [place] % (Auto) (0.0-10.0) % Eos % (Auto) (0.0-4.0) % Baso % (Auto) (0.0-2.0) % Neut # (1.8-7.0) K/uL Lymph # (1.0-4.3) K/uL [place] # (0.0-0.8) K/uL Eos # (0.0-0.7) K/uL Baso # (0.0-0.2) K/uL Neutrophils % (Manual) (42-75) % Band Neutrophils % (0-2) % Lymphocytes % (Manual) (20-50) % Reactive Lymphs % (0-0) % Monocytes % (Manual) (0-10) % Metamyelocytes % (0-0) % Toxic Granulation Platelet Estimate (NORMAL) Large Platelets Giant Platelets Hypochromasia (manual) Poikilocytosis (manual Anisocytosis (manual) Tear Drop Cells Ovalocytes Shanta Cells Schistocytes PT (9.8-13.1) Seconds INR (0.9-1.2) APTT (25.6-37.1) Seconds pCO2 (35-45) mm/Hg pO2 (80-100) mm/Hg HCO3 (21-28) mmol/L ABG pH (7.35-7.45) ABG Total CO2 (22-28) mmol/L ABG O2 Saturation (95-98) % ABG O2 Content (15-23) ML/dL ABG Base Excess (-2.0-3.0) mmol/L ABG Hemoglobin (11.7-17.4) g/dL ABG Carboxyhemoglobin (0.5-1.5) % POC ABG HHb (Measured) (0.0-5.0) % ABG Methemoglobin (0.0-3.0) % ABG O2 Capacity (16-24) mL/dL Rodney Test A-a O2 Difference mm/Hg Hgb O2 Saturation (95.0-98.0) % FiO2 % Sodium (132-148) mmol/l Potassium (3.6-5.0) MMOL/L Chloride (98-107) mmol/L Carbon Dioxide (22-30) mmol/L Anion Gap (10-20) BUN (9-20) mg/dl Creatinine (0.8-1.5) mg/dl Est GFR ( Amer) Est GFR (Non-Af Amer) POC Glucose (mg/dL) (65-110) mg/dL Random Glucose (75-110) mg/dL Lactic Acid (0.7-2.1) MMOL/L Calcium (8.4-10.2) mg/dL Total Bilirubin (0.2-1.3) mg/dl AST (17-59) U/L ALT (21-72) U/L Alkaline Phosphatase (38-126) U/L Troponin I (0.00-0.120) ng/mL NT-Pro-B Natriuret Pep (0-900) pg/ml Total Protein (6.3-8.2) G/DL Albumin (3.5-5.0) g/dL Globulin (2.2-3.9) gm/dL Albumin/Globulin Ratio (1.0-2.1) Urine Osmolality 536 (300-1000) mosm/kg Ur Random Sodium < 5 meq/L Ur Random Potassium 80.7 mmol/L Influenza Typ A,B (EIA) (NEGATIVE) Laboratory Results - last 24 hr 07/27/17 07/27/17 07/27/17 08:33 20:38 20:47 WBC RBC Hgb Hct MCV MCH MCHC RDW Plt Count MPV Neut % (Auto) Lymph % (Auto) [place] % (Auto) Eos % (Auto) Baso % (Auto) Neut # Lymph # [place] # Eos # Baso # Neutrophils % (Manual) Band Neutrophils % Lymphocytes % (Manual) Reactive Lymphs % Monocytes % (Manual) Metamyelocytes % Toxic Granulation Platelet Estimate Large Platelets Giant Platelets Hypochromasia (manual) Poikilocytosis (manual Anisocytosis (manual) Tear Drop Cells Ovalocytes Shanta Cells Schistocytes PT INR APTT pCO2 21 L pO2 52 L HCO3 25.5 ABG pH 7.60 H ABG Total CO2 21.2 L ABG O2 Saturation 94.5 L ABG O2 Content 17.8 ABG Base Excess 1.1 ABG Hemoglobin 14.3 ABG Carboxyhemoglobin 3.9 H POC ABG HHb (Measured) 5.2 H ABG Methemoglobin 2.3 ABG O2 Capacity 18.8 Rodney Test Yes A-a O2 Difference 71.0 Hgb O2 Saturation 88.6 L FiO2 21.0 Sodium Potassium Chloride Carbon Dioxide Anion Gap BUN Creatinine Est GFR ( Amer) Est GFR (Non-Af Amer) POC Glucose (mg/dL) 106 Random Glucose Lactic Acid Calcium Total Bilirubin AST ALT Alkaline Phosphatase Troponin I NT-Pro-B Natriuret Pep Total Protein Albumin Globulin Albumin/Globulin Ratio Urine Osmolality 536 Ur Random Sodium < 5 Ur Random Potassium 80.7 Influenza Typ A,B (EIA) 07/27/17 07/27/17 07/27/17 21:02 21:02 21:02 WBC 10.0 RBC 4.72 Hgb 14.2 Hct 43.5 MCV 92.2 MCH 30.2 MCHC 32.7 L RDW 19.8 H Plt Count 67 L MPV 8.7 Neut % (Auto) 95.7 H Lymph % (Auto) 1.4 L [place] % (Auto) 2.7 Eos % (Auto) 0.1 Baso % (Auto) 0.1 Neut # 9.6 H Lymph # 0.1 L [place] # 0.3 Eos # 0.0 Baso # 0.0 Neutrophils % (Manual) 97 H Band Neutrophils % Lymphocytes % (Manual) 1 L Reactive Lymphs % Monocytes % (Manual) 2 Metamyelocytes % Toxic Granulation Platelet Estimate Normal Large Platelets Giant Platelets Hypochromasia (manual) Slight Poikilocytosis (manual Anisocytosis (manual) Slight Tear Drop Cells Slight Ovalocytes Keaton Cells Slight Schistocytes PT INR APTT pCO2 pO2 HCO3 ABG pH ABG Total CO2 ABG O2 Saturation ABG O2 Content ABG Base Excess ABG Hemoglobin ABG Carboxyhemoglobin POC ABG HHb (Measured) ABG Methemoglobin ABG O2 Capacity Rodney Test A-a O2 Difference Hgb O2 Saturation FiO2 Sodium 128 L Potassium 4.5 Chloride 97 L Carbon Dioxide 22 Anion Gap 14 BUN 24 H Creatinine 0.9 Est GFR ( Amer) > 60 Est GFR (Non-Af Amer) > 60 POC Glucose (mg/dL) Random Glucose 115 H Lactic Acid 3.7 H Calcium 8.1 L Total Bilirubin 4.1 H AST 222 H ALT 125 H Alkaline Phosphatase 69 Troponin I NT-Pro-B Natriuret Pep Total Protein 6.5 Albumin 2.7 L Globulin 3.8 Albumin/Globulin Ratio 0.7 L Urine Osmolality Ur Random Sodium Ur Random Potassium Influenza Typ A,B (EIA) 07/27/17 07/27/17 07/28/17 21:12 21:55 04:30 WBC 15.8 H D RBC 4.74 Hgb 14.3 Hct 44.0 MCV 92.9 MCH 30.1 MCHC 32.4 L RDW 20.4 H Plt Count 39 L D MPV 9.4 Neut % (Auto) 90.8 H Lymph % (Auto) 2.8 L [place] % (Auto) 6.1 Eos % (Auto) 0.1 Baso % (Auto) 0.2 Neut # 14.3 H Lymph # 0.4 L [place] # 1.0 H Eos # 0.0 Baso # 0.0 Neutrophils % (Manual) 88 H Band Neutrophils % 5 H Lymphocytes % (Manual) 2 L Reactive Lymphs % 1 H Monocytes % (Manual) 3 Metamyelocytes % 1 H Toxic Granulation Present Platelet Estimate Decreased L Large Platelets Present Giant Platelets Present Hypochromasia (manual) Poikilocytosis (manual Moderate Anisocytosis (manual) Marked Tear Drop Cells Slight Ovalocytes Moderate Shanta Cells Slight Schistocytes Slight PT INR APTT pCO2 pO2 HCO3 ABG pH ABG Total CO2 ABG O2 Saturation ABG O2 Content ABG Base Excess ABG Hemoglobin ABG Carboxyhemoglobin POC ABG HHb (Measured) ABG Methemoglobin ABG O2 Capacity Rodney Test A-a O2 Difference Hgb O2 Saturation FiO2 Sodium Potassium Chloride Carbon Dioxide Anion Gap BUN Creatinine Est GFR ( Amer) Est GFR (Non-Af Amer) POC Glucose (mg/dL) Random Glucose Lactic Acid Calcium Total Bilirubin AST ALT Alkaline Phosphatase Troponin I 0.5530 H* NT-Pro-B Natriuret Pep 04877 H Total Protein Albumin Globulin Albumin/Globulin Ratio Urine Osmolality Ur Random Sodium Ur Random Potassium Influenza Typ A,B (EIA) Negative for flu a/b 07/28/17 07/28/17 07/28/17 04:30 05:00 08:14 WBC RBC Hgb Hct MCV MCH MCHC RDW Plt Count MPV Neut % (Auto) Lymph % (Auto) [place] % (Auto) Eos % (Auto) Baso % (Auto) Neut # Lymph # [place] # Eos # Baso # Neutrophils % (Manual) Band Neutrophils % Lymphocytes % (Manual) Reactive Lymphs % Monocytes % (Manual) Metamyelocytes % Toxic Granulation Platelet Estimate Large Platelets Giant Platelets Hypochromasia (manual) Poikilocytosis (manual Anisocytosis (manual) Tear Drop Cells Ovalocytes [place]aton Cells Schistocytes PT 26.1 H INR 2.3 H APTT 43.2 H pCO2 pO2 HCO3 ABG pH ABG Total CO2 ABG O2 Saturation ABG O2 Content ABG Base Excess ABG Hemoglobin ABG Carboxyhemoglobin POC ABG HHb (Measured) ABG Methemoglobin ABG O2 Capacity Rodney Test A-a O2 Difference Hgb O2 Saturation FiO2 Sodium 132 Potassium 4.1 Chloride 98 Carbon Dioxide 21 L Anion Gap 17 BUN 28 H Creatinine 0.8 Est GFR ( Amer) > 60 Est GFR (Non-Af Amer) > 60 POC Glucose (mg/dL) Random Glucose 125 H Lactic Acid 4.6 H* Calcium 8.0 L Total Bilirubin AST ALT Alkaline Phosphatase Troponin I NT-Pro-B Natriuret Pep Total Protein Albumin Globulin Albumin/Globulin Ratio Urine Osmolality Ur Random Sodium Ur Random Potassium Influenza Typ A,B (EIA) 07/28/17 08:14 WBC RBC Hgb Hct MCV MCH MCHC RDW Plt Count MPV Neut % (Auto) Lymph % (Auto) [place] % (Auto) Eos % (Auto) Baso % (Auto) Neut # Lymph # [place] # Eos # Baso # Neutrophils % (Manual) Band Neutrophils % Lymphocytes % (Manual) Reactive Lymphs % Monocytes % (Manual) Metamyelocytes % Toxic Granulation Platelet Estimate Large Platelets Giant Platelets Hypochromasia (manual) Poikilocytosis (manual Anisocytosis (manual) Tear Drop Cells Ovalocytes Shanta Cells Schistocytes PT INR APTT pCO2 pO2 HCO3 ABG pH ABG Total CO2 ABG O2 Saturation ABG O2 Content ABG Base Excess ABG Hemoglobin ABG Carboxyhemoglobin POC ABG HHb (Measured) ABG Methemoglobin ABG O2 Capacity Rodney Test A-a O2 Difference Hgb O2 Saturation FiO2 Sodium Potassium Chloride Carbon Dioxide Anion Gap BUN Creatinine Est GFR ( Amer) Est GFR (Non-Af Amer) POC Glucose (mg/dL) Random Glucose Lactic Acid 3.4 H Calcium Total Bilirubin AST ALT Alkaline Phosphatase Troponin I NT-Pro-B Natriuret Pep Total Protein Albumin Globulin Albumin/Globulin Ratio Urine Osmolality Ur Random Sodium Ur Random Potassium Influenza Typ A,B (EIA) EKG/Cardiology Studies: Cardiology / EKG Studies 07/28/17 EKG [ELECTROCARDIOGRAM] Routine Comment: Mode Of Transportation: Reason For Exam: A Fib 07/27/17 21:13 EKG [ELECTROCARDIOGRAM] Stat Comment: Mode Of Transportation: Reason For Exam: dyspnea Fingerstick Blood Sugar Results: 106 Critical Care Progress Note - Nutrition Nutrition: Nutrition Category Date Time Status Heart Healthy Diet [DIET] Diets 07/27/17 Breakfast Active Assessment/Plan - Assessment and Plan (Free Text) Plan: 72 y/o male with pmx of liver dysfunction, h/o valvular disorder presents to ICU for fevers. -Sepsis: source unknown, pending blood cultures, UA/ucx, empirically on abx vanco/zosyn, check serial lactic, ID consult follow up -s/p TAVR: will benefit from MIESHA r/o TAVR infection -Chronic systolic/diastolic heart failure/CAD/Myocardial Infarction: on asa/ plavix, not a candidtate for ACEI 2nd low BP, not a candidate for statin 2nd inceased LFts, no t candidate for AC 2nd thrombocytopnia -Transminitis: with increased LFTs, INR and low platelets c/w chronic liver failure, check hepaitis panel, check ammonia, GI consult -A-fib: rate controlled with dig x1, will restart AV adonay calli as BP tolerates, not a candidate for AC as INR 2.4 2nd liver failure, Cardiology follow up -thrombocytopenia: possible lysis 2nd valve, check echo AV r/o paravalvular leak -DVT ppx: SCDs -PUD ppx pepcid (thrombocytopenia) Patient remains hemodynamically stable. d/w - Date & Time Date: 07/28/17 Time: 11:49
[2017-07-28 11:34] LABS: URINE AMORPHOUS SEDIMENT RARE /ul (<OCC); URINE BACTERIA RARE (<OCC); URINE BILIRUBIN NEGATIVE (NEGATIVE); URINE BLOOD MODERATE (NEGATIVE); URINE CLARITY CLOUDY (Clear); URINE COLOR AMBER (YELLOW); URINE GLUCOSE (UA) 50 mg/dL (Normal); URINE LEUKOCYTE ESTERASE NEG Leu/uL (Negative); URINE NITRATE NEGATIVE (NEGATIVE); URINE PROTEIN 30 mg/dL (NEGATIVE); URINE UROBILINOGEN 0.2-1.0 mg/dL (0.2-1.0)
--- NOTE | 2017-07-28 12:58 | PN ---
DATE: I was contacted by Dr. Patel from [facility] on behalf of Dr. Ronnie Griffin. I discussed the case with him and he accepted the transfer of Mr. Eros Ward to [facility] under his service and order was made in the computer with this aspect. I did speak earlier to the patient's that in case of transfer, written consent will be obtained from the herself because of the patient's mental condition of on and off confusion. In the meantime, I discussed the case at length with Dr. Tompkins and I recommended Infectious Disease consult from Dr. Lynn for the choice of antibiotics as well as Hematology consult because of worsening thrombocytopenia. Cristi Cook MD
--- NOTE | 2017-07-28 13:11 | US ---
HISTORY: fluid COMPARISON: None available. TECHNIQUE: Sonographic evaluation of the abdomen. FINDINGS: LIVER: Measures 18.3 cm in sagittal dimension and appears within normal limits of size, shape, and echotexture. 1.8 x 1.3 x 1.6 cm left hepatic cyst. 2.0 x 1.5 x 1.2 cm complex appearing cyst containing septation also noted. The main portal vein appears patent with normal directional flow. No intrahepatic bile duct dilatation. GALLBLADDER: Contracted gallbladder contains numerous gallstones. No gallbladder wall thickening. Negative sonographic Carreon's sign as assessed by the behavioral sciences department chair. COMMON BILE DUCT: Measures 4 mm. PANCREAS: Not well visualized. RIGHT KIDNEY: Measures 11.7 x 4.5 x 4.6 cm. No hydronephrosis or obstructing calculus identified. LEFT KIDNEY: Measures 11.0 x 5.1 x 5.2 cm. No hydronephrosis or obstructing calculus identified. SPLEEN: Measures approximately 8.3 cm. AORTA: Limited views appear unremarkable. IVC: Limited views appear unremarkable. OTHER FINDINGS: Incidental note is made of right-sided pleural effusion. IMPRESSION: Contracted gallbladder containing numerous gallstones. Hepatic cysts including complex appearing cyst with septation measuring approximately 2.0 cm. Incidental note is made of right-sided pleural effusion.
[2017-07-28] MEDS ORDERED: DOPamine 400mg/250ml D5W 400 MG/250 ML BAG IV ONE (14:26)
[2017-07-28] MEDS ORDERED: Sodium Chloride 0.9% 1,000 ML IV SCH (14:26)
--- NOTE | 2017-07-28 16:47 | PCM.PROC ---
Procedures Attestation:: I certify that I have explained the specified Operation(s) or Procedure(s), risks, benefits and reasonable alternatives to the Patient and/or other person responsible. The opportunity was given to ask questions and all questions answered - Central Line Placement Left Femoral Triple Lumen Catheter CVP Time Out Performed: Yes Pt. Placed on Pulse Ox Monitor: Yes Central Line Prep: Chlorhexidine-Alcohol Combination Local Anesthesia Used: Lidocaine 1% Ultrasound Used for Placement: Yes Central Line Lumen Inserted: triple Central Line Length: 20 cm Post Procedure: Sutured in Place, Good Blood Return, All Ports Aspirated, Flushed, Capped, Sterile Dressing Applied Secured by: Suture Post procedure dressing: Gauze, Clear vapor permeable, Chlorhexidine disc ( Biopatch) Post Procedure X-Ray: No Patient Tolerated Procedure: Well Immediate Complications: None Additional Comments: Patient had recent TAVR via right femroal artery and Cath granger via left femoral artery, Since there was larger induration in right groin, decisicion was made to place TLC in left femoral vein. both groin had ecchymosis with previous catheterization. Patient tolerated the procedure well.
--- NOTE | 2017-07-28 18:27 | CON ---
DATE: CARDIOLOGY CONSULTATION REASON FOR CONSULTATION: Status post TAVR and fever. HISTORY OF PRESENT ILLNESS: The history is obtained from the patient's on the phone. The patient is a 72-year-old male who has a history of coronary artery disease, according to the ; coronary stent was attempted at [facility], which was unsuccessful and 2 weeks ago, the patient underwent TAVR at [facility] by Dr. Ronnie Griffin. Patient was admitted to the ICU because of high-grade fever, shortness of breath, and cough. Patient at times was confused in the ICU and although they have made an EKG that revealed sinus tachycardia, patient is currently in atrial fibrillation. According to the , she is not aware of any history of atrial fibrillation and the patient underwent only TAVR and did not undergo any stent 2 weeks ago at the [facility]. No history of heart infection in the past, according to the , and the patient has dentures and has no teeth remaining. SOCIAL HISTORY: Patient is a former smoker, former EtOH abuser. 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 He is , lives with his . MEDICATIONS: Home medications included Advair, Plavix, albuterol, aspirin. Current hospital medications are Advair one puff inhalation q. 12 hours, albuterol inhaler q. 6 hours, aspirin 81 mg once a day, Zosyn 3.375 g intravenously q. 8 hours, Plavix 75 mg once a day, vancomycin 1 g intravenously q. 12 hours, normal saline 100 mL an hour, Protonix 20 mg once a day. PAST MEDICAL HISTORY: History of coronary artery disease and history of COPD. PHYSICAL EXAMINATION: GENERAL: The patient is an elderly male who is at times confused. Denies any chest pain at this time. VITAL SIGNS: Blood pressure 92/52, heart rate is 132, temperature 97.7, respirations 18. HEENT: Normocephalic. CHEST: Bilateral rhonchi. HEART: S1, S2 regular. Grade 2/6 ejection systolic murmur over left sternal border. ABDOMEN: Soft. EXTREMITIES: No edema. LABORATORY DATA: Today's hemoglobin and hematocrit 14.3 and 44.0, white count 15.8, platelet count 39,000, which is a significant drop compared to yesterday's platelet count of 67,000. INR is 2.3, PTT 43.2. SMA-7: Today's sodium 132, potassium 4.1, chloride 98, CO2 of 21, glucose 125, BUN 28, creatinine 0.8. Troponin 0.5530 and proBNP is 33,400. Lactic acid today is 4.6. EKG on admission revealed sinus tachycardia with first-degree AV block and frequent APCs, consider old anteroseptal infarct, possible lateral ischemia. Chest x-ray revealed cardiomegaly with prominent bronchovascular marking, cannot rule out right lower lobe infiltrate. ASSESSMENT: 1. Status post transcatheter aortic valve replacement 2 weeks ago. 2. History of coronary artery disease and borderline troponin elevation, rule out non-ST elevation myocardial infarction. 3. Consider bacterial endocarditis. 4. Worsening thrombocytopenia. 5. Coagulopathy. 6. Chronic obstructive lung disease. RECOMMENDATIONS: Continue current IV vancomycin and IV Zosyn, continue aspirin 81 mg once a day, Plavix 75 mg once a day. Full anticoagulation will be withheld in view of worsening thrombocytopenia. I requested TSH level and a bedside echocardiographic study; however, after my long discussion with the , she requested transfer to [facility]. I did contact Dr. Ronnie Griffin at [phone] and I left a message with my return back number, which is my cell phone number, to discuss the transfer to [facility] with Dr. Ronnie Griffin as per the patient's 's request. In the meantime, I recommend Hematology consult as well as Infectious Disease consult. Cristi Cook MD
[2017-07-28 21:43] VITALS: BP 96/63; PULSE 119; RESP 19; TEMP 100.9; O2SAT 96
[2017-07-28 22:28] LABS: D DIMER 6954 ng/mlDDU (0-230); FIBRINOGEN 398 mg/dl (200-400)
[2017-07-29 12:39] LABS: HEPATITIS B SURFACE AG NEGATIVE (NEGATIVE)
[2017-07-29 12:46] LABS: HEPATITIS A IGM NEGATIVE (NEGATIVE); HEPATITIS B CORE AB Negative (NEGATIVE)
[2017-07-29 12:51] LABS: HEPATITIS C ANTIBODY Negative (NEGATIVE)
[2017-07-29 12:56] LABS: HEPATITIS C ANTIBODY Negative (NEGATIVE)
--- NOTE | 2017-07-29 15:37 | CP.PCM.DIS ---
Provider - Provider Date of Admission: 07/27/17 21:46 Attending physician: Farnaz Downey MD Consults: Cardio: Dr Cook ID: DR [id number] Hematology: Dr Leyva Time Spent in preparation of Discharge (in minutes): 50 Diagnosis - Discharge Diagnosis (1) Sepsis Status: Acute (2) Endocarditis Status: Suspected (3) S/P TAVR (transcatheter aortic valve replacement) Status: Acute (4) Abnormal LFTs Status: Acute (5) COPD exacerbation Status: Acute (6) HCAP (healthcare-associated pneumonia) Status: Acute (7) Hyponatremia Status: Acute (8) Jaundice Status: Acute (9) Thrombocytopenia Status: Acute (10) Coagulopathy Status: Acute Hospital Course - Lab Results Lab Results: Micro Results 07/27/17 08:30 Nose MRSA Culture (Admit) - Final MRSA NOT DETECTED 07/28/17 09:07 Urine,Clean Catch Urine Culture - Final No Growth (<1,000 CFU/ML) 07/27/17 21:26 Blood S.aureus & Coag-Neg Staph PNA FISH - Final 07/27/17 21:26 Blood Blood Culture - Preliminary Staphylococcus Aureus 07/27/17 21:26 Blood Gram Stain - Final 07/27/17 Unknown Blood Blood Culture - Preliminary Staphylococcus Aureus 07/27/17 Unknown Blood Gram Stain - Final Most Recent Lab Values WBC 15.8 K/uL (4.8-10.8) H D 07/28/17 04:30 RBC 4.74 Mil/uL (4.40-5.90) 07/28/17 04:30 Hgb 14.3 g/dL (12.0-18.0) 07/28/17 04:30 Hct 44.0 % (35.0-51.0) 07/28/17 04:30 MCV 92.9 fl (80.0-94.0) 07/28/17 04:30 MCH 30.1 pg (27.0-31.0) 07/28/17 04:30 MCHC 32.4 g/dL (33.0-37.0) L 07/28/17 04:30 RDW 20.4 % (11.5-14.5) H 07/28/17 04:30 Plt Count 39 K/uL (130-400) L D 07/28/17 04:30 MPV 9.4 fl (7.2-11.7) 07/28/17 04:30 Neut % (Auto) 90.8 % (50.0-75.0) H 07/28/17 04:30 Lymph % (Auto) 2.8 % (20.0-40.0) L 07/28/17 04:30 [place] % (Auto) 6.1 % (0.0-10.0) 07/28/17 04:30 Eos % (Auto) 0.1 % (0.0-4.0) 07/28/17 04:30 Baso % (Auto) 0.2 % (0.0-2.0) 07/28/17 04:30 Neut # 14.3 K/uL (1.8-7.0) H 07/28/17 04:30 Lymph # 0.4 K/uL (1.0-4.3) L 07/28/17 04:30 [place] # 1.0 K/uL (0.0-0.8) H 07/28/17 04:30 Eos # 0.0 K/uL (0.0-0.7) 07/28/17 04:30 Baso # 0.0 K/uL (0.0-0.2) 07/28/17 04:30 Neutrophils % (Manual) 88 % (42-75) H 07/28/17 04:30 Band Neutrophils % 5 % (0-2) H 07/28/17 04:30 Lymphocytes % (Manual) 2 % (20-50) L 07/28/17 04:30 Reactive Lymphs % 1 % (0-0) H 07/28/17 04:30 Monocytes % (Manual) 3 % (0-10) 07/28/17 04:30 Metamyelocytes % 1 % (0-0) H 07/28/17 04:30 Toxic Granulation Present 07/28/17 04:30 Platelet Estimate Decreased (NORMAL) L 07/28/17 04:30 Large Platelets Present 07/28/17 04:30 Giant Platelets Present 07/28/17 04:30 Hypochromasia (manual) Slight 07/27/17 21:02 Poikilocytosis (manual Moderate 07/28/17 04:30 Anisocytosis (manual) Marked 07/28/17 04:30 Tear Drop Cells Slight 07/28/17 04:30 Ovalocytes Moderate 07/28/17 04:30 Shnata Cells Slight 07/28/17 04:30 Schistocytes Slight 07/28/17 04:30 PT 26.1 Seconds (9.8-13.1) H 07/28/17 08:14 INR 2.3 (0.9-1.2) H 07/28/17 08:14 APTT 43.2 Seconds (25.6-37.1) H 07/28/17 08:14 Fibrinogen 398 mg/dl (200-400) 07/28/17 19:24 D-Dimer, Quantitative 6954 ng/mlDDU (0-230) H 07/28/17 19:24 pCO2 21 mm/Hg (35-45) L 07/27/17 20:47 pO2 52 mm/Hg (80-100) L 07/27/17 20:47 HCO3 25.5 mmol/L (21-28) 07/27/17 20:47 ABG pH 7.60 (7.35-7.45) H 07/27/17 20:47 ABG Total CO2 21.2 mmol/L (22-28) L 07/27/17 20:47 ABG O2 Saturation 94.5 % (95-98) L 07/27/17 20:47 ABG O2 Content 17.8 ML/dL (15-23) 07/27/17 20:47 ABG Base Excess 1.1 mmol/L (-2.0-3.0) 07/27/17 20:47 ABG Hemoglobin 14.3 g/dL (11.7-17.4) 07/27/17 20:47 ABG Carboxyhemoglobin 3.9 % (0.5-1.5) H 07/27/17 20:47 POC ABG HHb (Measured) 5.2 % (0.0-5.0) H 07/27/17 20:47 ABG Methemoglobin 2.3 % (0.0-3.0) 07/27/17 20:47 ABG O2 Capacity 18.8 mL/dL (16-24) 07/27/17 20:47 Rodney Test Yes 07/27/17 20:47 A-a O2 Difference 71.0 mm/Hg 07/27/17 20:47 Hgb O2 Saturation 88.6 % (95.0-98.0) L 07/27/17 20:47 FiO2 21.0 % 07/27/17 20:47 Sodium 132 mmol/l (132-148) 07/28/17 04:30 Potassium 4.1 MMOL/L (3.6-5.0) 07/28/17 04:30 Chloride 98 mmol/L (98-107) 07/28/17 04:30 Carbon Dioxide 21 mmol/L (22-30) L 07/28/17 04:30 Anion Gap 17 (10-20) 07/28/17 04:30 BUN 28 mg/dl (9-20) H 07/28/17 04:30 Creatinine 0.8 mg/dl (0.8-1.5) 07/28/17 04:30 Est GFR ( Amer) > 60 07/28/17 04:30 Est GFR (Non-Af Amer) > 60 07/28/17 04:30 POC Glucose (mg/dL) 106 mg/dL (65-110) 07/27/17 20:38 Random Glucose 125 mg/dL (75-110) H 07/28/17 04:30 Lactic Acid 3.5 MMOL/L (0.7-2.1) H 07/28/17 14:30 Calcium 8.0 mg/dL (8.4-10.2) L 07/28/17 04:30 Total Bilirubin 4.1 mg/dl (0.2-1.3) H 07/27/17 21:02 AST 222 U/L (17-59) H 07/27/17 21:02 ALT 125 U/L (21-72) H 07/27/17 21:02 Alkaline Phosphatase 69 U/L (38-126) 07/27/17 21:02 Troponin I 0.5530 ng/mL (0.00-0.120) H* 07/27/17 21:55 NT-Pro-B Natriuret Pep 11530 pg/ml (0-900) H 07/27/17 21:55 Total Protein 6.5 G/DL (6.3-8.2) 07/27/17 21:02 Albumin 2.7 g/dL (3.5-5.0) L 07/27/17 21:02 Globulin 3.8 gm/dL (2.2-3.9) 07/27/17 21:02 Albumin/Globulin Ratio 0.7 (1.0-2.1) L 07/27/17 21:02 Urine Color Ayleen (YELLOW) 07/28/17 08:33 Urine Clarity Cloudy (Clear) 07/28/17 08:33 Urine pH 5.0 (5.0-8.0) 07/28/17 08:33 Ur Specific [place] 1.016 (1.003-1.030) 07/28/17 08:33 Urine Protein 30 mg/dL (NEGATIVE) 07/28/17 08:33 Urine Glucose (UA) 50 mg/dL (Normal) 07/28/17 08:33 Urine Ketones Negative mg/dL (NEGATIVE) 07/28/17 08:33 Urine Blood Moderate (NEGATIVE) 07/28/17 08:33 Urine Nitrate Negative (NEGATIVE) 07/28/17 08:33 Urine Bilirubin Negative (NEGATIVE) 07/28/17 08:33 Urine Urobilinogen 0.2-1.0 mg/dL (0.2-1.0) 07/28/17 08:33 Ur Leukocyte Esterase Neg Yousif/uL (Negative) 07/28/17 08:33 Urine RBC (Auto) 6 /hpf (0-3) H 07/28/17 08:33 Urine Microscopic WBC 1 /hpf (0-5) 07/28/17 08:33 Amorphous Sediment Rare /ul (<OCC) H 07/28/17 08:33 Urine Bacteria Rare (<OCC) 07/28/17 08:33 Urine Osmolality 536 mosm/kg (300-1000) 07/27/17 08:33 Ur Random Sodium < 5 meq/L 07/27/17 08:33 Ur Random Potassium 80.7 mmol/L 07/27/17 08:33 Hepatitis A IgM Ab Negative (NEGATIVE) 07/28/17 14:30 Hepatitis A Ab Total Antibody pos (NEGATIVE) 07/28/17 14:30 Hep Bs Antigen Negative (NEGATIVE) 07/28/17 14:30 Hep Bs Antibody Negative (NEGATIVE) 07/28/17 14:30 Hep B Core IgM Ab Negative (NEGATIVE) 07/28/17 14:30 Hepatitis C Antibody Negative (NEGATIVE) 07/28/17 14:30 Influenza Typ A,B (EIA) Negative for flu a/b (NEGATIVE) 07/27/17 21:12 - Hospital Course Hospital Course: 72 y/o male with hx of recent TAVR ( 10 days ago) and hx of COPD, presented to the ED bec of fever to 103 , cough, generalized weakness. Noted to be hypotensive, septic, with abn LFTS , coagulopathy and Thrombocytopenia and elevated Lactate. Septic Shock prob sec to HCAP (healthcare-associated pneumonia) vs Endocarditis -Admitted to ICU - Central line placed and pt started on pressors - Levophed and Dopamine - IVF hydration - ID consult - Dr Lynn -started on Vanc/Zosyn IV -duonebs - Blood cultures: Staph aureus - Urine c/s, sputum c/s Recent TAVR done at [facility] Jul 17 Troponin Elevation prob sec to Sepsis Cardio consulted - pt was on Plavix and ASA at home Hyponatremia-- multiple possible etiologies: vol overload from cardiac and/or liver disease, pulmonary cause, or intravascular vol dep -Urine lytes, osms, and serum osms ordered -Received IVF Elevated LFTs/Jaundice/Thrombocytopenia / Coagulopathy ? etiology ? related to Sepsis, DIC - check ddimer, Fibrinogen, HIT -U/S abd: gallstone, no signs of cholecystitis, hepatic cyst -PPI given patient is on dual anti-platelent agents and with low plt - platelet down to 37, INR 2.3 - GI consult -Hematology consult - Ddimer elevated, Fibrinogen normal - HIT ab pending COPD exacerbation Status: Acute received IV Solumedrol, Duoneb treatments As per pt and family request - pt was transferred back to [facility] ( where he recently had TAVR) Pt was d/c last night 07/28/17 once bed was available Discharge Exam - Head Exam Head Exam: NORMAL INSPECTION, NORMOCEPHALIC - Eye Exam Eye Exam: Normal appearance Pupil Exam: NORMAL ACCOMODATION - ENT Exam ENT Exam: Mucous Membranes Moist, Normal External Ear Exam - Neck Exam Neck exam: Full Rom - Respiratory Exam Respiratory Exam: Rales, NORMAL BREATHING PATTERN. absent: Respiratory Distress - Cardiovascular Exam Cardiovascular Exam: Tachycardia, REGULAR RHYTHM, +S1, +S2 - GI/Abdominal Exam GI & Abdominal Exam: Normal Bowel Sounds, Soft. absent: Tenderness - Extremities Exam Extremities exam: normal capillary refill, pedal pulses present - Back Exam Back exam: absent: CVA tenderness (L), CVA tenderness (R) - Neurological Exam Neurological exam: Alert, CN II-XII Intact, Oriented x3, Reflexes Normal - Psychiatric Exam Psychiatric exam: Flat Affect - Skin Skin Exam: Dry, Normal Color, Warm Discharge Plan - Follow Up Plan Condition: SERIOUS Disposition: OTHER INSTITUTION
== END 2017-07-28 21:00 | disposition short-term general hospital (02) | DRG 871 ==
LOC: H.ER 19:51 → H.ICU/CCU 21:46
PROVIDERS: ADMIT Internal Medicine; ATTEND Internal Medicine
PROC: 06HY33Z Insertion of Infusion Device into Lower Vein, Percutaneous Approach (ICD-10-PCS; principal; 2017-07-28)
PROC: 3E03329 Introduction of Other Anti-infective into Peripheral Vein, Percutaneous Approach (ICD-10-PCS; 2017-07-28)
DX: A41.9 Sepsis, unspecified organism (principal); J18.9 Pneumonia, unspecified organism; R65.21 Severe sepsis with septic shock; D68.8 Other specified coagulation defects; D69.6 Thrombocytopenia, unspecified; E87.1 Hypo-osmolality and hyponatremia; I48.91 Unspecified atrial fibrillation; J44.1 Chronic obstructive pulmonary disease with (acute) exacerbation; J44.0 Chronic obstructive pulmonary disease with (acute) lower respiratory infection; Y95 Nosocomial condition; I10 Essential (primary) hypertension; I25.10 Atherosclerotic heart disease of native coronary artery without angina pectoris; Z87.891 Personal history of nicotine dependence; Z95.2 Presence of prosthetic heart valve; Z95.5 Presence of coronary angioplasty implant and graft; Z79.02 Long term (current) use of antithrombotics/antiplatelets; Z79.82 Long term (current) use of aspirin